=== PATIENT | female | born 1965 ===

== ENCOUNTER 2017-08-27 14:48 | Inpatient (IN) | payer OTHER ==
[~2017-08-27] VITALS: Ht 165.1 cm; Wt 73.5 kg
[2017-08-27] MEDS ORDERED: CLONAZEPAM0.5 MG PO (15:26)
[2017-08-27] MEDS ORDERED: PRISTIQ ER50 MG PO (15:26)
[2017-08-27] MEDS ORDERED: B-12500 MCG PO (15:27)
[2017-08-27] MEDS ORDERED: [UNRECOGNIZED DRUG - REMARK] (15:27)
[2017-10-03] MEDS ORDERED: CIPRO500 MG PO (07:31)
[2017-10-03] MEDS ORDERED: MAXFE CAPLET1 EACH PO (07:31)
[2017-10-03] MEDS ORDERED: OXYC1TAB9 PO (07:31)
== END 2017-10-03 09:10 | DRG 743 ==
LOC: SURH 09-02 13:30 → OB/GYN 09-30 07:05 → O/R 09-30 07:05 → OB/GYN 09-30 15:50
PROVIDERS: Obstetrics & Gynecology Gynecology
PROC: 0UT70ZZ Resection of Bilateral Fallopian Tubes, Open Approach (ICD-10-PCS; 2017-09-30)
PROC: 0UT90ZZ Resection of Uterus, Open Approach (ICD-10-PCS; principal; 2017-09-30 20:45)
PROC: 30233N1 Transfusion of Nonautologous Red Blood Cells into Peripheral Vein, Percutaneous Approach (ICD-10-PCS; 2017-10-02)
DX: D25.1 Intramural leiomyoma of uterus (principal); N72 Inflammatory disease of cervix uteri; N84.0 Polyp of corpus uteri; D64.2 Secondary sideroblastic anemia due to drugs and toxins; N92.0 Excessive and frequent menstruation with regular cycle